=== PATIENT | female | born 1995 | race Caucasian/White ===

== ENCOUNTER 2025-08-26 13:08 | Emergency (ER) | payer SELFPAY ==
--- OUTSIDE RECORDS SUMMARY | 2025-08-26 13:13 | XMS REPORT | Continuity of Care Document ---
Author Name Unknown Address [address] [place] [address] [facility] [place] Address [address] [place] [address] Care Team Providers Care Staffing And Scheduling Coordinator Name Role Phone JENN TEIXEIRA Attending Clinician Unavailab Donta Dumont Attending Clinician Unavailable Ramy Root Attending Clinician Unavailable Nigel Pelayo Attending Clinician Unavailable Jae Garcia Attending Clinician Unavailable Carl Mcbride Attending Clinician Unavailable SKY SLADE Attending Clinician Chanel vailable Physician, No Primary or Family Admitting Clinic fiorella Unavailable JENN TEIXEIRA Admitting Clinician Unavailab mora Payers Payer Name Policy Type Policy Number Effective Date Expirati on Date Source [employer] [place] [employer] D [id number] 2018 00:00:00 Problems Condition Name Condition Details Condition Category Status Onset Date Resolution Date Last Treatment Date Treating Clinician Comments Source HIGH BP HIGH BP Active 07/10/2020 [facility] Diagnosis Active 2020-0 8-14 00:00: 00 2020-07-10 17:56:00 Darcy Sorto PIH PIH Active 07/08/2020 [facility] Diagnosis Active 8-12 00:00: 00 2020-07-09 07:15:00 Darcy Sorto ITCHY ITCHY Active 05/31/2020 [facility] Diagnosis Active 7-05 00:00: 00 2020-06-01 05:21:00 Darcy Sorto CHILDBIRTH CHILDBIRTH Active 10/27/2019 [facility] Diagnosis Active 2018-11 2- 00:00: 00 2020-07-14 17:37:00 Memrio Sorto ABD PAIN, N/V/D ABD PAIN, N/V/D Active 02/05/2015 [facility] Diagnosis Active -12 13:00: 00 2015-02-05 16:43:00 Memrio Sorto Gallbladde r calculus (disorder) Gallbladde r calculus (disorder) Resolved Problem 07/20/2020 [facility] Problem Resolve d 2020-07-20 07:42:51 Darcy Sorto Oligohydra mnios (disorder) Oligohydra mnios (disorder) Active Problem 07/20/2020 [facility] Problem Active 2020-07-20 07:42:51 Darcy Sorto ENCOUNTER FOR FULL-TERM UNCOMPLICA GUSTAVO DE ENCOUNTER FOR FULL-TERM UNCOMPLICA GUSTAVO DE Active [facility] Diagnosis Active 2020-07-14 17:37:00 Darcy Sorto LIVER AND BILIARY TRACT DISORD IN PREGNA LIVER AND BILIARY TRACT DISORD IN PREGNA Active [facility] Diagnosis Active 2020-06-01 05:21:00 Darcy Sorto 31 WEEKS GESTATION OF 31 WEEKS GESTATION OF Active [facility] Diagnosis Active 2020-06-01 05:21:00 Darcy Sorto MATERN CARE FOR ABNLT FETL HRT RATE OR R MATERN CARE FOR ABNLT FETL HRT RATE OR R Active [facility] Diagnosis Active 2020-06-01 05:21:00 Darcy Sorto Patient currently (finding) Patient currently (finding) Resolved 10/22/2019 Problem 07/20/2020 [facility] Problem Resolve d 2018-11 00:00: 00 2020-07-20 07:42:51 2020-07-20 07:42:51 Darcy Sorto History of Past Illness Condition Name Condition Details Condition Category Status Onset Date Resolution Date Last Treatment Date Treating Clinician Comments Source 37 weeks gestation of 37 weeks gestation of 07/10/2020 07/12/2020 [facility] Problem 2019-0 8-14 17:00: 00 2020-07-12 22:09:49 2020-07-12 22:09:49 Darcy Sorto Decreased movements, third trimester, not applicable or unspecifie d Decreased movements, third trimester, not applicable or unspecifie d 07/10/2020 07/12/2020 [facility] Problem 8-14 17:00: 00 2020-07-12 22:09:49 2020-07-12 22:09:49 Darcy Sorto Liver and biliary tract disorders in , third trimester Liver and biliary tract disorders in , third trimester 05/31/2020 06/02/2020 [facility] 7-05 17:00: 00 2020-06-02 21:11:00 2020-06-02 21:11:00 Darcy Sorto 31 weeks gestation of 31 weeks gestation of 05/31/2020 06/02/2020 [facility] Problem 7-05 17:00: 00 2020-06-02 21:11:00 2020-06-02 21:11:00 Darcy Sorto Discharge Diagnosis: Biliary colic Discharge Diagnosis: Biliary colic 02/05/2015 02/08/2015 [facility] Problem 2014-0 3-12 05:00: 00 2015-02-08 00:42:20 2015-02-08 00:42:20 Darcy Sorto Allergies, Adverse Reactions, Alerts Allergy Name Allergy Type Status Severity Reaction(s) Onset Date Inactive Date Treating Clinician Comments Source No Known Allergie s DA Active U 04-02 00:00: 00 [facility] [place] No Known Allergie s DA Active U 04-02 00:00: 00 [facility] [place] No Known Medicati on Allergie s No Known Medicati on Allergie s Active Darcy Sorto Social History Social Habit Start Date Stop Date Quantity Comments Source Sex Assigned At 1995 00:00:00 1995 00:00:00 Female [facility] Smoking Status Start Date Stop Date Source Unknown if ever smoked [facility] Social History [facility] Medications Ordered Medication Name Filled Medication Name Start Date Stop Date Current Medication? Ordering Clinician Indication Dosage Frequency Signature (SIG) Comments Components Source Docusate Sodium 100 MG Oral Capsule [Colace] 07-16 16:09: 00 Yes 100 mg = 1 cap, PO, BID, # 60 cap, 0 Refill(s), Pharmacy: [address], 165.1, cm, 07/13/20 11:32:00 CDT, Height, 90, kg, 07/13/20 11:32:00 CDT, Weight Memrio Sorto ferrous sulfate 325 mg oral enteric coated tablet 07-16 16:09: 00 Yes 325 mg = 1 tab, PO, Daily, # 30 tab, 0 Refill(s), Pharmacy: [address], 165.1, cm, 07/13/20 11:32:00 CDT, Height, 90, kg, 07/13/20 11:32:00 CDT, Weight Memrio Sorto Motrin 600 mg oral tablet 07-16 16:09: 00 Yes 600 mg = 1 tab, PO, Q6H, PRN Pain, take with food, # 30 tab, 0 Refill(s), Pharmacy: [address], 165.1, cm, 07/13/20 11:32:00 CDT, Height, 90, kg, 07/13/20 11:32:00 CDT, Weight Darcy Sorto Witch Nicolasa 500 MG/ML Medicated Pad 07-16 02:24: 00 No Notes: (Same as: Dominic Albraado PADS) Darcy Sorto Docusate Sodium 100 MG Oral Capsule [Colace] 07-15 22:00: 00 No Notes: (Same as: Colace) (Do Not Crush) Darcy Sorto ferrous sulfate 07-15 16:54: 00 No Notes: Give with food. iron elemental [id number] as ferrous sulfate Dose=___mg elemental iron Rudyrio emili Macario Multivitami ns oral tablet 07-15 14:00: 00 No 1 tab, Route: PO, Drug Form: TAB, Dosing Weight 90, kg, Daily, Start date: 07/15/20 9:00:00 CDT, Duration: 30 day, Stop date: 08/13/20 9:00:00 CDT, 0 Darcy Sorto Saline Flush 0.9% 07-15 14:00: 00 No Notes: Same as: BD Posiflush Sterile Rudyrio emili [place] Ibuprofen 07-15 05:00: 00 No Notes: (Same as: Motrin) "Do Not Crush" Take with food. Darcy Sorto M-M-R II 07-15 03:00: 00 No Notes: (Same as: M-M-R II) (measles-m umps-rubel la virus vaccine 0.5 ml INJ VL) WASTE: F/P - Red; E -Red GIVE PRIOR TO DISCHARGE Darcy Sorto Calcium Chloride 0.0014 MEQ/ML / Potassium Chloride 0.004 MEQ/ML / Sodium Chloride 0.103 MEQ/ML / Sodium Lactate 0.028 MEQ/ML Injectable Solution 07-15 03:00: 00 No 1,000 mL, 1,000 ml/hr, Infuse Over: 1 hr, Route: IV, 1,000, Drug form: INJ, ONCALL, Dosing Weight 90 kg, Start date: 07/14/20 22:00:00 CDT, Duration: 1 doses or times, For OB hemorrhage per physician direction, 0 Darcy Sorto Oxytocin 07-15 03:00: 00 No Notes: (Same as: Pitocin) Hazardous Drug Group 3:Reproduc tive risk Hazardous Drug -- Refer to safe handling procedure PPE Matrix Rudyrio mock Macario Misoprostol 07-15 03:00: 00 No Notes: (Same as:Cytotec ) Hazardous Drug Group 3:Reproduc tive risk Hazardous Drug -- Refer to safe handling procedure PPE Matrix Take with food Darcy Sorto Methylergon ovine 07-15 03:00: 00 No Notes: (Same as:Metherg ine) Hazardous Drug Group 3:Reproduc tive risk Hazardous Drug -- Refer to safe handling procedure PPE Matrix Darcy Sorto Atropine Sulfate 0.025 MG / Diphenoxyla te Hydrochlori de 2.5 MG Oral Tablet 07-15 03:00: 00 No Notes: (Same As: Lomotil) MAX Adult dose = 8 tabs/day Darcy Sorto Carboprost 07-15 03:00: 00 No Notes: (Same As: Hemabate) Darcy Sorto Tranexamic Acid 07-15 03:00: 00 No Notes: (Same As: Cyklokapro n) Darcy Sorto Lactated Ringers IV 1,000 mL 07-15 02:52: 00 No 1,000 mL, Rate: 100 ml/hr, Infuse over: 10 hr, Route: IV, Dosing Weight 90 kg, Total Volume: 1,000, see special instructio n for rate while completing infusion from recovery for the 20U of Oxytocin., Start date: 07/14/20 21:52:00 CDT, Duration: 30 day,... Darcy Sorto Ondansetron 07-15 02:52: 00 No Notes: (Same as: Zofran) MEDICATION WASTE Product Size: 4 mg Product Wasted: ___ mg Darcy Sorto Docusate 07-15 02:52: 00 No Notes: (Same as: Colace) (Do Not Crush) Darcy Sorto Bisacodyl 07-15 02:52: 00 No Notes: (Same As: Dulcolax, Correctol) (Do Not Crush) "Do Not Crush" Darcy Sorto lanolin topical 07-15 02:52: 00 No 1 appl, Route: TOP, PRN, Drug form: OINT, PRN Other -See Comment, Start date: 07/14/20 21:52:00 CDT, Duration: 30 day, Stop date: 08/13/20 21:51:00 CDT, 0 Darcy Sorto Dermoplast 20% topical spray 07-15 02:52: 00 No Notes: (Same As: Dermoplast ) WASTE: Aerosol - Return to Pharmacy FOR EXTERNAL USE ONLY Darcy Sorto Oxytocin 07-15 02:52: 00 No Notes: Hazardous Drug Group 3:Reproduc tive risk Hazardous Drug -- Refer to safe handling procedure PPE Matrix Darcy Sorto Saline Flush 0.9% 07-15 02:52: 00 No Notes: Same as: BD Posiflush Sterile Darcy Sorto Acetaminoph en 325 MG / Hydrocodone Bitartrate 10 MG Oral Tablet 07-15 02:52: 00 No Notes: Do not exceed 4gm/day of acetaminop hen. (Same as: Pelion 325/10) Darcy Sorto Gentamicin 07-15 02:00: 00 No 120 mg, Route: IV, Q12H, Dosing Weight 90, kg, Start date: 07/14/20 21:00:00 CDT, Duration: 30 day, Stop date: 08/13/20 9:00:00 CDT Darcy Sorto Ampicillin 07-15 01:00: 00 No Notes: (Same as: Trino) MEDICATION WASTE Product Size: 2000 mg Product Wasted: ___ mg Darcy Sorto Tylenol 07-15 00:28: 00 No 1,000 mg, Route: PO, ONCE, Dosing Weight 90, kg, Start date: 07/14/20 19:28:00 CDT, Stop date: 07/14/20 19:28:00 CDT Darcy Sorto Fentanyl / ropivacaine 07-14 05:19: 00 No Notes: (Same as Kaitlin hunter) Darcy Sorto Phenylephri ne 07-14 05:19: 00 No 0.1 mg, 1 mL, Route: IVP, Drug form: INJ, Q5Min, Dosing Weight 90, kg, PRN Low Blood Pressure, Start date: 07/14/20 0:19:00 CDT, Duration: 30 day, Stop date: 08/13/20 0:18:00 CDT, 0 Rudyrio Zhuann Remove - dinoproston e (Cervidil) insert 07-14 05:00: 00 No Notes: Vaginal insert: to be removed 1 hour prior to oxytocin administra tion or 12 hours after insertion. Hazardous Drug Group 3:Reproduc tive risk Hazardous Drug -- Refer to safe handling procedure PPE Matrix Darcy Sorto Cervidil 07-13 22:00: 00 No Notes: (Same as: Cervidil) Hazardous Drug Group 3:Reproduc tive risk Hazardous Drug -- Refer to safe handling procedure PPE Matrix Darcy Sorto Hydroxyzine 07-13 18:31: 00 No 0 Refill(s) Darcy Sorto Oxytocin 07-13 17:30: 00 No Notes: Hazardous Drug Group 3:Reproduc tive risk Hazardous Drug -- Refer to safe handling procedure PPE Matrix Darcy Sorto Cervidil 07-13 17:30: 00 No Notes: (Same as: Cervidil) Hazardous Drug Group 3:Reproduc tive risk Hazardous Drug -- Refer to safe handling procedure PPE Matrix Darcy Sorto Ibuprofen 07-13 17:00: 00 No Notes: (Same as: Motrin) "Do Not Crush" Take with food. Rudyrio emili Sorto Calcium Chloride 0.0014 MEQ/ML / Potassium Chloride 0.004 MEQ/ML / Sodium Chloride 0.103 MEQ/ML / Sodium Lactate 0.028 MEQ/ML Injectable Solution 07-13 17:00: 00 No 1,000 mL, 1,000 ml/hr, Infuse Over: 1 hr, Route: IV, 1,000, Drug form: INJ, ONCALL, Dosing Weight 90 kg, Start date: 07/13/20 12:00:00 CDT, Duration: 1 doses or times, For OB hemorrhage per physician direction, 0 Darcy Sorto Oxytocin 07-13 17:00: 00 No Notes: (Same as: Pitocin) Hazardous Drug Group 3:Reproduc tive risk Hazardous Drug -- Refer to safe handling procedure PPE Matrix Darcy Sorto Misoprostol 07-13 17:00: 00 No Notes: (Same as:Cytotec ) Hazardous Drug Group 3:Reproduc tive risk Hazardous Drug -- Refer to safe handling procedure PPE Matrix Take with food Darcy Sorto Methylergon ovine 07-13 17:00: 00 No Notes: (Same as:Metherg ine) Hazardous Drug Group 3:Reproduc tive risk Hazardous Drug -- Refer to safe handling procedure PPE Matrix Darcy Sorto Atropine Sulfate 0.025 MG / Diphenoxyla te Hydrochlori de 2.5 MG Oral Tablet 07-13 17:00: 00 No Notes: (Same As: Lomotil) MAX Adult dose = 8 tabs/day Darcy Sorto Carboprost 07-13 17:00: 00 No Notes: (Same As: Hemabate) Darcy Sorto Tranexamic Acid 07-13 17:00: 00 No Notes: (Same As: Cyklokapro n) Darcy Sorto Calcium Chloride 0.0014 MEQ/ML / Potassium Chloride 0.004 MEQ/ML / Sodium Chloride 0.103 MEQ/ML / Sodium Lactate 0.028 MEQ/ML Injectable Solution 07-13 16:56: 00 No 1,000 mL, Rate: 125 ml/hr, Infuse over: 8 hr, Route: IV, Dosing Weight 90 kg, Total Volume: 1,000, see special instructio ns when infusing 20U of Oxytocin., Start date: 07/13/20 11:56:00 CDT, Duration: 30 day, Stop date: 08/12/20 11:55:00 CDT, 2.06, m2, 0 Darcy Sorto Oxytocin 07-13 16:56: 00 No Notes: Hazardous Drug Group 3:Reproduc tive risk Hazardous Drug -- Refer to safe handling procedure PPE Matrix Darcy Sorto Butorphanol 07-13 16:56: 00 No Notes: (Same As: Stadol) Darcy Sorto Acetaminoph en 325 MG / Hydrocodone Bitartrate 10 MG Oral Tablet 07-13 16:56: 00 No Notes: Do not exceed 4gm/day of acetaminop hen. (Same as: Pelion 325/10) Darcy Sorto Ondansetron 07-13 16:56: 00 No Notes: (Same as: Cristian) MEDICATION WASTE Product Size: 4 mg Product Wasted: ___ mg Darcy Sorto Lidocaine Hydrochlori de 10 MG/ML Injectable Solution 07-13 16:56: 00 No Notes: Preservati ve free. (Same as: Xylocaine MPF) Darcy Sorto Terbutaline 2020-0 8-17 16:56: 00 No Notes: DO NOT USE IN S[place] AREA (Same As: Brethine) Darcy Sorto Dermoplast 20% topical spray 07-13 16:56: 00 No Notes: (Same As: Dermoplast ) WASTE: Aerosol - Return to Pharmacy FOR EXTERNAL USE ONLY Darcy Sorto Prena1 07-08 20:47: 00 Yes PO, Daily, 0 Refill(s) Darcy Sorto multivitami n, 05-31 14:00: 00 No 1 tab, Route: PO, Drug Form: TAB, Dosing Weight 52.727, kg, Daily, Start date: 05/31/20 9:00:00 CDT, Duration: 30 day, Stop date: 06/29/20 9:00:00 CDT, 0 Darcy Sorto Tums 05-31 08:54: 00 No Notes: (Same As: Tums) Calcium Carbonate 500 mg = 200 mg elemental calcium Dose = mg calcium carbonate ( mg elemental calcium) Darcy Sorto Calcium Chloride 0.0014 MEQ/ML / Potassium Chloride 0.004 MEQ/ML / Sodium Chloride 0.103 MEQ/ML / Sodium Lactate 0.028 MEQ/ML Injectable Solution 05-31 07:02: 00 No 1,000 mL, 1000 ml/hr, Infuse Over: 1 hr, Route: IV, 1,000, Drug form: INJ, ONCE, Priority: STAT, Dosing Weight 52.727 kg, Start date: 05/31/20 2:02:00 CDT, Stop date: 05/31/20 2:02:00 CDT, 0 Darcy emili Sorto Lactated Ringers IV 1,000 mL 05-31 07:01: 00 No 1,000 mL, Rate: 125 ml/hr, Infuse over: 8 hr, Route: IV, Dosing Weight 52.727 kg, Total Volume: 1,000, Start date: 05/31/20 2:01:00 CDT, Duration: 30 day, Stop date: 06/30/20 2:00:00 CDT, 1.55, m2, 0 Darcy Sorto Saline Flush 0.9% 05-31 07:01: 00 No Notes: Same as: BD Posiflush Sterile Darcy Sorto Ursodeoxych olate 05-31 06:51: 00 No Notes: (Same As: Actigall) Darcy Sorto ursodiol 300 mg oral capsule 05-31 06:13: 00 Yes 300 mg = 1 cap, PO, TID, # 180 cap, 0 Refill(s), Pharmacy: [facility] Pharmacy Lani Sorto Benadryl 05-31 06:10: 00 No Notes: (Same as: Benadryl) Darcy Zhuann Hydroxyzine Hydrochlori de 25 MG Oral Tablet 05-31 06:10: 00 Yes 25 mg = 1 tab, PO, TID, X 30 day, # 90 tab, 0 Refill(s), Pharmacy: [facility] Pharmacy Lani Sorto tetanus/dip hth/pertuss (Tdap) adult/adol 05-31 05:00: 00 No Notes: Therapeuti c Interchang e for Boostrix Rudyrio mock Macario Ondansetron 4 MG Disintegrat ing Tablet [Zofran] 02-05 22:24: 00 Yes Special Instructio ns: Dissolve tab under tongue Darcy emili Sorto Acetaminoph en 300 MG / Codeine Phosphate 30 MG Oral Tablet [Tylenol with Codeine #3] 02-05 22:24: 00 Yes 1 - 2 tab, PO, Q4H, Pain, # 20 tab, 0 Refill(s) Rudyrio emili Sorto Ondansetron 02-05 22:23: 00 No Notes: (Same as: Zofran) Darcy Sorto Morphine 02-05 22:23: 00 No Notes: (Same as:MORPhin e Sulfate) Rudyrio emili Sorto Sodium Chloride 0.154 MEQ/ML Injectable Solution 02-05 20:48: 00 No 1,000 mL, 1,000 ml/hr, Infuse Over: 1 hr, Route: IV, 1,000, Drug form: INJ, ONCE, Priority: STAT, Dosing Weight 52.727 kg, Start date: 02/05/15 15:48:00, Duration: 1 doses or times, Stop date: 02/05/15 15:48:00 [facility] Mac[facility] Morphine 02-05 20:48: 00 No Notes: (Same as:MORPhin e Sulfate) Memoria l Macario Ondansetron 02-05 20:48: 00 No Notes: (Same as: Zofran) Darcy l Macario Ketorolac 02-05 20:48: 00 No 4 days Memoria l Macario Vital Signs Vital Name Observation Time Observation Value Comments S ource Temperature Oral (F) 2020-07-16 13:25:00 97.9 F [facility] Heart Rate 2020-07-16 13:25:00 [facility] Respitory Rate 2020-07-16 13:25:00 [facility] Systolic (mm Hg) 2020-07-16 13:25:00 [facility] Diastolic (mm Hg) 2020-07-16 13:25:00 [facility] Temperature Oral (F) 2020-07-16 03:00:00 97.9 F [facility] Heart Rate 2020-07-16 03:00:00 [facility] Respitory Rate 2020-07-16 03:00:00 [facility] Systolic (mm Hg) 2020-07-16 03:00:00 [facility] Diastolic (mm Hg) 2020-07-16 03:00:00 [facility] Temperature Oral (F) 2020-07-15 20:31:00 97.4 F [facility] Heart Rate 2020-07-15 20:31:00 [facility] Respitory Rate 2020-07-15 20:31:00 [facility] Systolic (mm Hg) 2020-07-15 20:31:00 [facility] Diastolic (mm Hg) 2020-07-15 20:31:00 [facility] Height 2020-07-13 16:32:00 165.1 cm [facility] Weight 2020-07-13 16:32:00 [facility] BMI Calculated 2020-07-13 16:32:00 [facility] Height 2020-07-10 22:25:00 165.1 cm [facility] Weight 2020-07-10 22:25:00 [facility] BMI Calculated 2020-07-10 22:25:00 [facility] Systolic (mm Hg) 2020-07-10 22:11:00 [facility] Diastolic (mm Hg) 2020-07-10 22:11:00 [facility] Heart Rate 2020-07-10 22:11:00 [facility] Respitory Rate 2020-07-10 22:11:00 [facility] Temperature Oral (F) 2020-07-10 22:11:00 98 F [facility] Systolic (mm Hg) 2020-07-08 21:30:00 [facility] Diastolic (mm Hg) 2020-07-08 21:30:00 [facility] Systolic (mm Hg) 2020-07-08 21:15:00 [facility] Diastolic (mm Hg) 2020-07-08 21:15:00 [facility] Systolic (mm Hg) 2020-07-08 21:00:00 [facility] Diastolic (mm Hg) 2020-07-08 21:00:00 [facility] Height 2020-07-08 20:03:00 165.1 cm [facility] Weight 2020-07-08 20:03:00 [facility] BMI Calculated 2020-07-08 20:03:00 [facility] Temperature Oral (F) 2020-05-31 13:47:00 97.9 F [facility] Respitory Rate 2020-05-31 12:00:00 [facility] Systolic (mm Hg) 2020-05-31 12:00:00 [facility] Diastolic (mm Hg) 2020-05-31 12:00:00 [facility] Height 2020-05-31 08:54:00 157.48 cm [facility] Weight 2020-05-31 08:54:00 [facility] BMI Calculated 2020-05-31 08:54:00 [facility] Systolic (mm Hg) 2020-05-31 08:00:00 [facility] Diastolic (mm Hg) 2020-05-31 08:00:00 [facility] Temperature Oral (F) 2020-05-31 08:00:00 98.0 F [facility] Systolic (mm Hg) 2020-05-31 07:28:00 [facility] Diastolic (mm Hg) 2020-05-31 07:28:00 [facility] Heart Rate 2020-05-31 07:28:00 [facility] Respitory Rate 2020-05-31 07:28:00 [facility] Weight 2020-05-31 07:10:00 [facility] Heart Rate 2020-05-31 05:45:00 [facility] Respitory Rate 2020-05-31 05:45:00 [facility] Temperature Oral (F) 2020-05-31 05:45:00 98.4 F [facility] Heart Rate 2015-02-05 22:24:00 [facility] Respitory Rate 2015-02-05 22:24:00 [facility] Systolic (mm Hg) 2015-02-05 22:24:00 [facility] Diastolic (mm Hg) 2015-02-05 22:24:00 [facility] Temperature Oral (F) 2015-02-05 22:24:00 98.9 F [facility] Systolic (mm Hg) 2015-02-05 20:17:00 [facility] Diastolic (mm Hg) 2015-02-05 20:17:00 [facility] Heart Rate 2015-02-05 20:17:00 [facility] Respitory Rate 2015-02-05 20:17:00 [facility] Temperature Oral (F) 2015-02-05 20:17:00 99.2 F [facility] Weight 2015-02-05 20:17:00 [facility] BMI Calculated 2015-02-05 20:17:00 [facility] Height 2015-02-05 20:17:00 162.56 cm [facility] Procedures Procedure Date / Time Performed Performing Clinician Source Group A Streptococcus Screen (NO) 2024-04-09 00:00:00 [facility] Group A Streptococcus Culture 2024-04-09 00:00:00 [facility] XR Chest Pa & Lat STANDARD 2024-01-10 10:50:00 [facility] Respiratory Syncytial Virus Ag 2024-01-10 00:00:00 [facility] Influenza Types A,B Direct EIA 2023-11-14 00:00:00 [facility] Group A Streptococcus Screen (NO) 2023-11-14 00:00:00 [facility] Influenza Types A,B Direct EIA 2022-11-06 00:00:00 [facility] Group A Streptococcus Screen (NO) 2022-11-06 00:00:00 [facility] Cholecystectomy 2012-11-27 00:00:00 [facility] Tonsillectomy and adenoidectomy [facility] Encounters Start Date/Time End Date/Time Encounter Type Admission Type Attending [facility] Facility Care Department Encounter ID Source 2022-02-19 12:54:06 Outpatient [facility] [id number] [facility] 2021-04-17 14:22:56 Inpatient [facility] [id number] [facility] [place] 2020-07-13 11:29:00 Inpatient JENN TEIXEIRA [facility] [id number] TW 2024-04-09 12:15:00 2024-04-09 14:03:00 Emergency ER Donta Capellan [facility] [id number] [facility] 2024-01-10 09:56:00 2024-01-10 12:45:00 Emergency ER Dk Ramy [facility] [id number] [facility] 2023-11-14 16:46:00 2023-11-14 18:19:00 Emergency ER Nigel Pelayo [facility] [id number] [facility] 2022-11-06 10:15:00 2022-11-06 11:30:00 Emergency ER GarciaJae [facility] [id number] [facility] 2021-09-15 13:43:00 2021-09-15 15:37:00 Inpatient EM Carl Mcbride [facility] EO2 [id number] [facility] [place] 2020-07-13 16:29:00 2020-07-16 21:20:00 Inpatient nullFlavo r [facility] [id number] [facility] 2020-07-10 21:52:57 2020-07-10 23:11:00 Emergency nullFlavo r [facility] [id number] [facility] 2020-07-10 16:52:00 2020-07-10 18:11:00 Emergency [facility] [id number] [facility] 2020-07-08 19:53:00 2020-07-08 21:50:00 Observatio n nullFlavo r [facility] [id number] [facility] 2020-07-08 14:53:00 2020-07-08 16:50:00 [facility] [id number] [facility] 2020-05-31 05:36:56 2020-05-31 14:30:00 Observatio n nullFlavo r [facility] [id number] [facility] 2020-05-31 02:01:00 2020-05-31 09:30:00 Outpatient E [facility] [id number] [facility] 2015-02-05 20:16:00 2015-02-05 23:38:00 [facility] [id number] [facility] Results Test Description Test Time Test Comments Results Result Co mments Source Molecular Testing [id number] 13:35:00* Test Item Value Reference Range Interpretation Comme nts Molecular Testing MM (test code = [id number]) Not Detected NotDetected Performance of t he Cepheid SARS-CoV-2 has only beenestablished in nasopharyngeal swab specimens. This testcannot rule out diseases caused by other bacterial or viralpathogens.Cepheid has been provided an FDA EUA that will be effectiveuntil the declaration that circumstances exist justifyingthe authorization of the emergency use of in vitrodiagnostic tests for detection and/or diagnosis ofCOVID-19 is terminated under Section 564(b)(2) of the Act orthe EUA is revoked under Section 564(g) of the Act. Molecular Testing MM (test code = CEPHFLUA) Not Detected NotDetected Molecular Testing MM (test code = CEPHFLUB) Not Detected NotDetected Resident in [facility] Care Setting: UnknownEmployed in Healthcare: UnknownFirst Test: UnknownHospitalized: UnknownICU: UnknownDate of Symptom Onset: [id number]: UnknownReason for Testing: PUI -SymptomaticSource: Nasopharyngeal SwabSymptomatic as defined by CDC: UnknownStrep Group A Screen 2024-04-09 13:11:00* Test Item Value Reference Range Interpretation Comme nts Strep Group A Screen (test c ode = STRP) STRPANEG1 Strep Group A Screen (test c ode = STRP1) N Strep Group A Screen (test c ode = STRP1) STRPTH WCNYYZKOGU-PpP-5 (COVID-19) RNA [Presence] in Respiratory specimen by JUDITH with probe [id number] 12:52:00* Test Item Value Reference Range Interpretation Comme nts SARS-CoV-2 Rapid RNA (RT-PCR)(LAB) (test code = 48391-1) Not Detected NotDetected [facility] [Presence] in Upper respiratory specimen by JUDITH with probe [id number] 12:52:00* Test Item Value Reference Range Interpretation Comme nts Influenza Virus Type A RNA (INAAT) (test code = 67217-7) Not Detected NotDetected [facility] CenterInfluenza virus B RNA [Presence] in Nasopharynx by JUDITH with probe pvfoizfne2334-19-72 12:52:00* Test Item Value Reference Range Interpretation Comme nts Influenza Virus Type B RNA (INAAT) (test code = 15755-9) Not Detected NotDetected [facility] CenterMolecular [facility] [id number] 01:31:00* Test Item Value Reference Range Interpretation Comme nts Molecular Testing MM (test code = COVIDNAAT) Not Detected NotDetected Negative (Not Detected) results do not preclude infectionwith SARS-CoV-2 virus, and should not be the sole basis of apatient management decision. Consider testing for otherviruses if clinically indicated.The use of this assay as an In vitro diagnostic under theA Emergency Use Authorization (EUA) is limited tolaboratories that are certified under the ClinicalLaboratory Improvement Amendments of 1988 (CLIA), 42 U.S.C.263a, to perform high complexity tests. Molecular Testing MM (test code = COVIDSOURCEMM) Nasopharyngeal Swab Resident in [facility] Setting: NoEmployed in Healthcare: NoFirst Test: NoHospitalized: UnknownICU: UnknownDate of Symptom Onset: [id number]: UnknownReason for Testing: PUI -SymptomaticSource: Nasopharyngeal SwabSymptomatic as defined by CDC: YesRespiratory Syncytial Virus [id number] 12:33:00* Test Item Value Reference Range Interpretation Comme nts Respiratory Syncytial Virus Ag (test code = RSV) A negative result does not exclude RSV infection; therefore, Respiratory Syncytial Virus Ag (test code = RSV1) warranted. Respiratory Syncytial Virus Ag (test code = RSV1) RSV Respiratory Syncytial Virus Ag (test code = RSV1) N NAWASHInfluenza A+B Ag [id number] 12:32:00* Test Item Value Reference Range Interpretation Comme nts Influenza A+B Ag Screen (test code = FLU) The rapid Flu A+B test can distinguish between influenza A Influenza A+B Ag Screen (test code = FLU1) follow up confirmatory testing is warranted. Influenza A+B Ag Screen (test code = FLU1) FLUB Influenza A+B Ag Screen (test code = FLU1) N FZFPEGOatfxrccye7901-24-83 11:59:00* Test Item Value Reference Range Interpretation Comme nts Urinalysis (test code = UACLR) Yellow Yellow Urinalysis (test code = UACLY) Clear Clear Urinalysis (test code = SPGR) 1.025 1.005-1.030 N Urinalysis (test code = FRANCISCO) 7.0 5.0-9.0 N Urinalysis (test code = UALEU) Negative Negative Urinalysis (test code = UANIT) Negative Negative Urinalysis (test code = PROUADIP) Negative mg/dL Neg-Trace Urinalysis (test code = GLUCU) Negative mg/dL Negative Urinalysis (test code = KETU) Negative mg/dL Negative Urinalysis (test code = UAUROB) 0.2 mg/dL Less than 2 Urinalysis (test code = UABIL) Negative Negative Urinalysis (test code = UABLD) Negative Negative Urinalysis (test code = UARBC) None Seen HPF 0-3 Urinalysis (test code = UAWBC) None Seen HPF 0-3 Urinalysis (test code = UASQUAM) 7-10 HPF 0-3 Urinalysis (test code = UABAC) 1+ HPF None Seen A feverIndications to order a Urinalysis: Fever or rigorsUrine Source: Urine MtdcqkSmowkxuynj6651-33-36 11:59:00* Test Item Value Reference Range Interpretation Comme nts Urinalysis (test code = UACRFLXNO) No feverIndications to order a Urinalysis: Fever or rigorsUrine Source: Urine FfkqryMfnuwtneik0836-33-71 11:47:00* Test Item Value Reference Range Interpretation Comme nts Urinalysis (test code = BHCGUT) Negative Negative Method of sensit ivity- INDETERMINANT: results should be repeated after 48-72 hrs POSITIVE: results may be detected as early as 1 day after the first missed period A dilute urine specimen may not contain representativelevels of hCG.If is still suspected, a first morning urinespecimen OR a random blood specimen should be obtainedfrom the patient 48-72 hours later and re-tested. Urinalysis (test code = PREGUSG) 1.025 1.002-1.036 N Squamous epithelial cells detection in urine sediment by light microscopy 2024-01-10 11:12:00* Test Item Value Reference Range Interpretation Comme nts Urine Squamous Epithelial Ce lls (test code = 34265-4) 7-10 HPF 0-3 [facility] HospitalBacteria detection in urine sediment by light xlrxxlpzdn0106-66-22 11:12:00* Test Item Value Reference Range Interpretation Comme nts Urine Bacteria (test code = 90743-8) 1+ HPF None Seen [facility] CenterDo Not [id number] 11:12:00* Test Item Value Reference Range Interpretation Comme nts Urine Culture Reflexed (test code = LOINC) No [facility] CenterHCG ur [id number] 11:12:00* Test Item Value Reference Range Interpretation Comme nts Urine Test (test c ode = 2106-3) Negative Negative [facility] specific gravity measurement by yiyeqdjcqjxzd5987-77-52 11:12:00* Test Item Value Reference Range Interpretation Comme nts Urine Specific [place] (test code = 5810-7) 1.025 1.002-1.036 [facility] mlobq5918-44-01 11:12:00* Test Item Value Reference Range Interpretation Comme nts Urine Color (test code = 5778-6) Yellow Yellow [facility] agtfngt3996-55-75 11:12:00* Test Item Value Reference Range Interpretation Comme nts Urine Clarity (test code = 11600-0) Clear Clear [facility] pH measurement by automated test strip 2024-01-10 11:12:00* Test Item Value Reference Range Interpretation Comme nts Urine pH (test code = 37344-4) 7.0 5.0-9.0 [facility] leukocyte esterase detection by automated test [id number] 11:12:00* Test Item Value Reference Range Interpretation Comme nts Urine Leukocyte Esterase (te st code = 58339-2) Negative Negative [facility] CenterNitrite [Presence] in Urine by Test strip 2024-01-10 11:12:00* Test Item Value Reference Range Interpretation Comme nts Urine Nitrite (test code = 5802-4) Negative Negative [facility] protein measurement by automated test strip (mass/volume)2024-01-10 11:12:00* Test Item Value Reference Range Interpretation Comme nts Urine Protein (test code = 16000-1) Negative mg/dL Neg-Trace [facility] glucose measurement by test strip (mass/volume)2024-01-10 11:12:00* Test Item Value Reference Range Interpretation Comme [facility] Urine Glucose (UA) (test cod e = 5792-7) Negative mg/dL Negative [facility] ketones measurement by automated test strip (mass/volume)2024-01-10 11:12:00* Test Item Value Reference Range Interpretation Comme [facility] Urine Ketones (test code = 43268-9) Negative mg/dL Negative [facility] urobilinogen measurement (units/volume) by test [id number] 11:12:00* Test Item Value Reference Range Interpretation Comme [facility] Urine Urobilinogen (test cod e = 39017-2) 0.2 mg/dL Less than 2 [facility] total bilirubin detection by automated test [id number] 11:12:00* Test Item Value Reference Range Interpretation Comme [facility] Urine Bilirubin (test code = 63872-0) Negative Negative [facility] hemoglobin detection by automated test qjwjx4868-97-95 11:12:00* Test Item Value Reference Range Interpretation Comme [facility] Urine Blood (test code = 11787-0) Negative Negative [facility] sediment erythrocyte count by microscopy (number/high power field)2024-01-10 11:12:00* Test Item Value Reference Range Interpretation Comme [facility] Urine RBC (test code = 34418-7) None Seen HPF 0-3 [facility] HospitalLeukocytes detection in urine sediment by light jwhftcakaa6861-48-85 11:12:00* Test Item Value Reference Range Interpretation Comme [facility] Urine WBC (test code = 24381-1) None Seen HPF 0-3 [facility] CareCulture, Strep Group A [id number] 16:38:00* Test Item Value Reference Range Interpretation Comme nts Culture, Strep Group A Rflx (test code = STRPACULT) STRPCULT Culture, Strep Group A Rflx (test code = STRPACULT1) N Influenza A+B Ag Vycgke4224-93-71 17:51:00* Test Item Value Reference Range Interpretation Comme nts Influenza A+B Ag Screen (test code = FLU) The rapid Flu A+B test can distinguish between influenza A Influenza A+B Ag Screen (test code = FLU1) follow up confirmatory testing is warranted. Influenza A+B Ag Screen (test code = FLU1) FLUB Influenza A+B Ag Screen (test code = FLU1) N NASAL HStrep Group A Keqcou3743-37-35 17:33:00* Test Item Value Reference Range Interpretation Comme nts Strep Group A Screen (test c ode = STRP) STRPANEG1 Strep Group A Screen (test c ode = STRP1) N Strep Group A Screen (test c ode = STRP1) STRPTH THROAT HMolecular Testing [id number] 20:02:00* Test Item Value Reference Range Interpretation Comme nts Molecular Testing MM (test code = COVIDNAAT) Not Detected NotDetected Negative (Not Detected) results do not preclude infectionwith SARS-CoV-2 virus, and should not be the sole basis of apatient management decision. Consider testing for otherviruses if clinically indicated.The use of this assay as an In vitro diagnostic under theA Emergency Use Authorization (EUA) is limited tolaboratories that are certified under the ClinicalLaboratory Improvement Amendments of 1988 (CLIA), 42 U.S.C.263a, to perform high complexity tests. Molecular Testing MM (test code = COVIDSOURCEMM) Nasopharyngeal Swab Resident in [facility] Care Setting: UnknownEmployed in Healthcare: UnknownFirst Test: UnknownHospitalized: UnknownICU: Unknown: UnknownReason for Testing: PUI -SymptomaticSource: Nasopharyngeal SwabSymptomatic as defined by CDC: UnknownInfluenza A+B Ag Dkqqgb1718-26-99 11:25:00* Test Item Value Reference Range Interpretation Comme nts Influenza A+B Ag Screen (audi t code = FLU) FLUA Influenza A+B Ag Screen (audi t code = FLU1) N Influenza A+B Ag Screen (audi t code = FLU1) FLUB Strep Group A [id number] 11:13:00* Test Item Value Reference Range Interpretation Comme nts Strep Group A Screen (test c ode = STRP) STRPTH A Strep Group A Screen (test c ode = STRP1) P A - CT ABD PELVIS W/O [id number] 15:07:00 [facility] : 1995 Sex: FPatient Name: MARQUISE MUNIZ Unit No: [id number] EXAMS: CPT: [id number] CT ABD PELVIS W/O CONT 53851 CT ABDOMEN AND PELVIS WITHOUT CONTRAST: HISTORY: Right flank pain COMPARISON: None TECHNIQUE: Axial CT imaging of the abdomen and pelvis without IV contrast. Sensitivity of the exam is limited without contrast. Evaluation of the solid abdominal organs and bowel limited by lack of contrast. If there is anyconcern for clinical pathologic in these location and or if patient has persistent unexplained symptoms, contrast CT is recommended for further evaluation. No GI contrast administered Total DPL: 381.69mGy*cm One or more of the following dose reduction techniques were used: Automated exposure control, adjustment of the mA and or Kv according to patient size, and / or utilization of iterative reconstruction technique. FINDINGS: Dependent atelectasis. Below the hemidiaphragms: The unenhanced liver, pancreas, spleen and adrenals are unremarkable. Total postcholecystectomy. Unremarkable right kidney. A 3 mm nonobstructive calyceal calculus at the lower pole left kidney. No hydronephrosis or hydroureter. No bladder calculi. A normal caliber appendix. No bowel obstruction. The abdominal aorta is of normal caliber. No enlarged retroperitoneal lymph nodes. Bilateral ovarian cysts or follicles. No free fluid and no free air. No suspicious osseous lesion. IMPRESSION: Nonobstructive left kidney calculi. Bilateral ovarian cysts or follicles. Name: MARQUISE MUNIZolia FSED Phys: Carl Enciso MD XXXX 1488 : 1995 Age: 26 Sex: [place] [id number] Loc: MARTIN Exam Date: 09/15/2021 Status: REG ER PH: FAX: PAGE 1 Signed Report (CONTINUED) Patient Nam e: MARQUISE MUNIZ Unit No: [id number] EXAMS: CPT: [id number] CT ABD PELVIS W/O CONT 98255 (Continued) at 1507 Reported and signed by: Grayson Ramírez MD CC: Carl Mcbride MD Technologist: Gabbi Lemus CTDI: 16.07 DLP: 831.69 Trscr Dt/Tm: 09/15/2021 (1507) by:[email or web address] Orig Print D/T: S: 09/15/2021 (1510) BATCH NO: N/A Name: MARQUISE MUNIZ FSED Phys: Carl Enciso MD XXXX 1488 : 1995 Age: 26 Sex: [place] [id number] Loc: MARTIN Exam Date: 09/15/2021 Status: REG ER PH: FAX: PAGE 2 Signed ReportCBC W/AUTO [id number] 14:49:00* Test Item Value Reference Range Interpretation Comme nts WHITE BLOOD CELL (test code = WBC) 12.28 K/mm3 5.0-12.0 H RED BLOOD CELL (test code = RBC) 5.14 M/mm3 4.20-5.40 N HEMOGLOBIN (test code = HGB) 12.7 G/DL 12.0-16.0 N HEMATOCRIT (test code = HCT) 39.9 % 34.9-44.5 N MEAN CELL VOLUME (test code = MCV) 78 fL 81-99 L MEAN CELL HGB (test code = MCH) 24.7 PGM 27-31 L MEAN CELL HGB CONCENTRATION (test code = MCHC) 31.8 G/DL 33-37 L RED CELL DISTRIBUTION WIDTH (test code = RDW) 15.3 % 11.6-16.2 N PLATELET COUNT (test code = PLT) 319 K/mm3 130-400 N MEAN PLATELET VOLUME (test c ode = MPV) 9.6 fl 7.4-10.4 N NEUTROPHIL % (test code = NT%) 71.3 % 43-65 H IMMATURE GRANULOCYTE % (test code = IG%) 0.2 % 0.0-2.0 N LYMPHOCYTE % (test code = LY%) 20.4 % 20.5-45.5 L MONOCYTE % (test code = MO%) 7.7 % 5.5-11.7 N EOSINOPHIL % (test code = EO%) 0.2 % 0.9-2.9 L BASOPHIL % (test code = BA%) 0.2 % 0.2-1.0 N NEUTROPHIL # (test code = NT#) 8.76 K/mm3 2.2-4.8 H IMMATURE GRANULOCYTE # (test code = IG#) 0.03 x10 3/uL 0-0.03 N LYMPHOCYTE # (test code = LY#) 2.50 K/mm3 1.3-2.9 N MONOCYTE # (test code = MO#) 0.95 K/mm3 0.3-0.8 H EOSINOPHIL # (test code = EO#) 0.02 K/MM3 0.0-0.2 N BASOPHIL # (test code = BA#) 0.02 K/mm3 0.0-0.1 N COMPREHENSIVE METABOLIC [id number] 14:35:00* Test Item Value Reference Range Interpretation Comme nts SODIUM POC (test code = NAP) 140 mmol/L 138-146 N POTASSIUM POC (test code = KP) 3.3 mmol/L 3.5-4.9 L CHLORIDE POC (test code = CLP) 101 mmol/L 98-109 N CO2 POC (test code = CO2P) 27 mmol/L 24-29 N GLUCOSE POC (test code = GLUP) 114 MG/DL 70-105 H BUN POC (test code = BUNP) 13 mg/dL 8-26 N CREATININE POC (test code = CREATP) 1.2 mg/dL 0.6-1.3 N GLOMERULAR FILTRATION RATE P OC (test code = GFRP) 55 >60 L TOTAL PROTEIN (test code = PROT) 7.3 g/dL 6.4-8.1 N ALBUMIN (test code = ALB) 3.9 g/dL 3.3-5.5 N CALCIUM (test code = CA) 9.8 mg/dL 8.8-10.5 N BILIRUBIN TOTAL (test code = BILT) 0.6 mg/dL 0.2-1.6 N SGOT/AST (test code = AST) 20 IU/L 11-38 N SGPT/ALT (test code = ALT) 28 IU/L 10-47 N ALKALINE PHOSPHATASE (test c ode = ALKP) 79 IU/L 42-141 N HCG [id number] 14:12:00* Test Item Value Reference Range Interpretation Comme nts HCG POC (test code = HCGPOC) NEGATIVE IU/L Results of 5.0-25.0 IU/L are indeterminate and do not ruleout . Because HCG values double approximately every48 hours in a normal , patients with low levels ofHCG should be resampled and retested after 48 hours toconfirm . URINALYSIS DIPSTICK [id number] 14:10:00* Test Item Value Reference Range Interpretation Comme nts UA COLOR (test code = COLU) Dark yellow YELLOW UA APPEARANCE (test code = APPU) Clear CLEAR UA GLUCOSE DIPSTICK (test code = DGLUU) NEGATIVE MG/AL NEGATIVE UA BILIRUBIN DIPSTICK (test code = BILU) 1+ NEGATIVE A UA KETONE DIPSTICK (test code = KETU) NEGATIVE MG/DL NEGATIVE UA SPECIFIC GRAVITY (test code = SGU) >=1.030 1.000-1.030 UA BLOOD DIPSTICK (test code = FABIENNE) 3+ NEGATIVE A UA PH DIPSTICK (test code = FRANCISCO) 5.0 4.5-8.5 UA PROTEIN DIPSTICK (test code = PROU) 1+ NEGATIVE A UA UROBILINOGEN DIPSTICK (test code = URO) 0.2 EU/dL See_Comment [Automated [employer]] The system which generated this result transmitted reference range: <=1.0. The reference range was not used to interpret this result as normal/abnormal. UA NITRITE DIPSTICK (test code = ALEJANDRO) NEGATIVE NEGATIVE UA LEUKOCYTE ESTERASE DIPSTICK (test code = LEUU) TRACE NEGATIVE A UR HCG [id number] 13:54:00* Test Item Value Reference Range Interpretation Comme nts UR HCG QUAL (test code = HCGQLU) NEGATIVE NEGATIVE URINALYSIS DIPSTICK [id number] 13:51:00* Test Item Value Reference Range Interpretation Comme nts UA COLOR (test code = COLU) Yellow YELLOW UA APPEARANCE (test code = APPU) Clear CLEAR UA GLUCOSE DIPSTICK (test code = DGLUU) NEGATIVE MG/AL NEGATIVE UA BILIRUBIN DIPSTICK (test code = BILU) NEGATIVE NEGATIVE UA KETONE DIPSTICK (test code = KETU) NEGATIVE MG/DL NEGATIVE UA SPECIFIC GRAVITY (test code = SGU) >=1.030 1.000-1.030 UA BLOOD DIPSTICK (test code = FABIENNE) NEGATIVE NEGATIVE UA PH DIPSTICK (test code = FRANCISCO) 6.0 4.5-8.5 UA PROTEIN DIPSTICK (test code = PROU) NEGATIVE NEGATIVE UA UROBILINOGEN DIPSTICK (test code = URO) 0.2 EU/dL See_Comment [Automated [employer]] The system which generated this result transmitted reference range: <=1.0. The reference range was not used to interpret this result as normal/abnormal. UA NITRITE DIPSTICK (test code = ALEJANDRO) NEGATIVE NEGATIVE UA LEUKOCYTE ESTERASE DIPSTICK (test code = LEUU) NEGATIVE NEGATIVE [id number] 15:28:00* Test Item Value Reference Range Interpretation Comme nts Coronavirus (COVID-19) JUDITH (test code = Coronavirus (COVID-19) JUDITH) Not Detected (07/15/20 10:28 AM) [facility]JtwxuytWQSLDJZIUD2428-61-25 15:26:00* Test Item Value Reference Range Interpretation Comme nts Hgb (test code = Hgb) 8.8 12.0-16.0 [facility] [id number] 17:53:00* Test Item Value Reference Range Interpretation Comme nts Glucose Lvl (test code = Glucose Lvl) 70 70-99 [facility] [id number] 17:19:00* Test Item Value Reference Range Interpretation Comme nts ABO/Rh (test code = ABO/Rh) O POS [facility] CenterHduwtfxWKTPIBTUUC1505-16-60 17:19:00* Test Item Value Reference Range Interpretation Comme nts WBC (test code = WBC) 15.9 3.7-10.4 [facility] HospitalMcycqthWREUXRVVKR0960-07-05 17:19:00* Test Item Value Reference Range Interpretation Comme nts Hep Bs Ag (test code = Hep Bs Ag) Negative *NA*(07/13/20 12:19 PM) [facility] [id number] 20:32:00* Test Item Value Reference Range Interpretation Comme nts Glucose Lvl (test code = Glucose Lvl) 85 70-99 [facility] CenterMuwypaeKBHMBMJJQD2397-92-08 20:32:00* Test Item Value Reference Range Interpretation Comme nts WBC (test code = WBC) 14.7 3.7-10.4 [facility] AND [id number] 20:32:00* Test Item Value Reference Range Interpretation Comme nts UA Turbidity (test code = UA Turbidity) Clear (07/08/20 3:32 PM) [facility]ial [id number] 06:07:00* Test Item Value Reference Range Interpretation Comme nts Glucose Lvl (test code = Glucose Lvl) 87 70-99 [facility] CenterYjhmuazQCHBIPMRXS9264-89-42 06:07:00* Test Item Value Reference Range Interpretation Comme nts WBC (test code = WBC) 14.8 3.7-10.4 [facility] AND [id number] 06:07:00* Test Item Value Reference Range Interpretation Comme nts UA Turbidity (test code = UA Turbidity) Marked *ABN*(05/31/20 1:07 AM) [facility] STREP GROUP A (THROAT) [id number] 14:05:00* Test Item Value Reference Range Interpretation Comme nts AG STREP GROUP A (THROAT) POC (test code = STREPAPOC) POSITIVE FOR STREP A NEGATIVE A URINE [id number] 22:04:00* Test Item Value Reference Range Interpretation Comme nts U Preg (test code = U Preg) Negative (02/05/15 5:04 PM) [facility] AND [id number] 22:04:00* Test Item Value Reference Range Interpretation Comme nts UA Bili (test code = UA Bili) Negative *NA*(02/05/15 5:04 PM) [facility]CHE[facility] [id number] 21:08:00* Test Item Value Reference Range Interpretation Comme nts Lipase Lvl (test code = Lipase Lvl) 124 73-393 [facility] HospitalIjcljijCYWSCDXMIJ6937-01-68 21:08:00* Test Item Value Reference Range Interpretation Comme nts MCHC (test code = MCHC) 33.4 32.0-36.0 [facility] Chest Pa Lat STANDARD [facility] 1995 [facility] Name: MARQUISE MUNIZ [address] [place] [address] Phys: [place] [address] : 1995 Age: 28 SEX:F [phone] Exam Date: 01/10/24 Status: REG ER Acct: [id number] Loc: ANGELICA ERS Pt Unit #: [id number] Report #: [id number] CC: Ramy Root MD PULSECHECKSJX:[id number] IMAGING SERVICES REPORT Report Status: Signed Order # Category/Exam [id number] RAD/XR Chest Pa Lat STANDARD ([id number]): . Results EXAM: XR Chest Pa Lat STANDARD HISTORY:ANGELICA . COUGH Comparison:None FINDINGS: No convincing focal consolidation. No pneumothorax or pleural effusion. Normal cardiac dimensions and position. IMPRESSION: No evidence of acute cardiopulmo nary abnormality. Reported By: Ramy Nelson MD Electronically Signed Date/Time: 01/10/24 1156 Technologist: EBONY Dictated Date/Time: 01/10/24 1154 Transcribed Date/Time: Notes Date/Time Note Provider Source 2021-09-15 15:20:00 [facility] [employer] ([facility]) EMERGENCY PROVIDER REPORT REPORT#:[id number] REPORT STATUS: Signed DATE:09/15/21 TIME: 152 PATIENT: MARQUISE MUNIZ UNIT #: [id number] ROOM: BED: AGE: 26 SEX: F PCP PHYS: No Primary or Family Physician SERVICE AUTHOR: Carl Mcbride MD * ALL edits or amendments must be made on the electronic/computer document * HPI-Abd Pain F Under 40 General Initial Greet Date/Time 09/15/21 1344 Presentation Chief Complaint Flank pain R Hx Obtained From Patient Sudden in Onset? Yes Onset Occurred Today Free Text HPI Notes Free Text HPI Notes 26-year-old complains of acute constant right flank pain associated with nausea. No fever. No dysuria or hematuria. No diarrhea or constipation. No vaginal bleeding or discharge. Risk-Abd Pain F Under 40 )( Ectopic Risk factors reviewed Review of Systems ROS Statements All systems rev neg except as marked. Past Medical History - Adult Stated Complaint ABDOMINAL PAIN Allergies Coded Allergies: No Known Allergies (04/02/19) Home Medications Discontinued Scripts Naproxen (Naprosyn) 250 MG PO BID PRN PRN PAIN Naproxen (Naprosyn) 250 MG PO BID PRN PRN PAIN #60 TABS Prov: 04/17/21 DC: 09/15/21 1353 Changed since prior admit Methocarbamol (Robaxin) 1,000 MG PO QID PRN PRN MUSCLE SPASMS/PAIN Methocarbamol (Robaxin) 1,000 MG PO QID PRN PRN MUSCLE SPASMS/PAIN #30 TABS Prov: 04/17/21 DC: 09/15/21 1353 Changed since prior admit Pt reports no significant: Family history, Social history Smoking status: Smoking status for patients 13 years old or older: Unknown,if ever smoked Physical Exam Vital Signs Vital Signs First Documented: Result Date Time Pulse Ox 100 09/15 1346 B/P 116/78 09/15 1346 B/P Mean 90.9 09/15 1346 Temp 36.4 09/15 1346 Pulse 58 09/15 1346 Resp 15 09/15 1346 O2 Delivery Room air 09/15 1349 Last Documented: Result Date Time O2 Delivery Room air 09/15 1349 Pulse Ox 100 09/15 1346 B/P 116/78 09/15 1346 B/P Mean 90.9 09/15 1346 Temp 36.4 09/15 1346 Pulse 58 09/15 134 Resp 15 09/15 1346 Review of Vital Signs Reviewed Focused PE General/Const General/Const Awake, Alert, Well appearing Ears/Nose/Throat Ears/Nose/Throat Airway patent, Mucous membranes moist, Pharynx NL Resp/Chest Respiratory/Chest Breath sounds NL, Breath sounds = bilat, No respiratory distress, No rales, No rhonchi, No wheezing Cardiovascular Cardiovascular Heart rate NL, Regular rhythm, Heart sounds NL, Peripheral circulation NL Abdomen/GI Abdomen/GI Soft, Non-tender, McBurney's non-tender, No guarding, No rebound, BS normoactive, No distention, No hernia, No palpable mass MS Back Back Inspection NL, Non-tender, No CVA tenderness Skin Skin Color NL, Warm, Dry, Turgor NL Neurologic Neurologic Oriented X3, Speech NL, No motor deficits, No sensory deficits Interpretation Diagnostics Lab Results Interpretation Results Laboratory Tests 09/15/21 1359: [Embedded Image Not Available] Laboratory Tests: 09/15 09/15 09/15 09/15 1220 1359 1415 1417 Chemistry POC Sodium (138 - 146 mmol/L) 140 POC Potassium (3.5 - 4.9 mmol/L) 3.3 L POC Chloride (98 - 109 mmol/L) 101 POC Total CO2 (24 - 29 mmol/L) 27 POC BUN (8 - 26 mg/dL) 13 POC Creatinine (0.6 - 1.3 mg/dL) 1.2 Estimated GFR (MDRD) (>60) 55 L POC Glucose (70 - 105 MG/DL) 114 H Calcium (8.8 - 10.5 mg/dL) 9.8 Total Bilirubin (0.2 - 1.6 mg/dL) 0.6 AST (11 - 38 IU/L) 20 ALT (10 - 47 IU/L) 28 Total Alk Phosphatase (42 - 141 IU/L) 79 Total Protein (6.4 - 8.1 g/dL) 7.3 Albumin (3.3 - 5.5 g/dL) 3.9 Hematology WBC (5.0 - 12.0 K/mm3) 12.28 H RBC (4.20 - 5.40 M/mm3) 5.14 Hgb (12.0 - 16.0 G/DL) 12.7 Hct (34.9 - 44.5 %) 39.9 MCV (81 - 99 fL) 78 L MCH (27 - 31 PGM) 24.7 L MCHC (33 - 37 G/DL) 31.8 L RDW (11.6 - 16.2 %) 15.3 Plt Count (130 - 400 K/mm3) 319 MPV (7.4 - 10.4 fl) 9.6 Neut % (Auto) (43 - 65 %) 71.3 H Lymph % (Auto) (20.5 - 45.5 %) 20.4 L Ellis % (Auto) (5.5 - 11.7 %) 7.7 Eos % (Auto) (0.9 - 2.9 %) 0.2 L Baso % (Auto) (0.2 - 1.0 %) 0.2 Neut # (Auto) (2.2 - 4.8 K/mm3) 8.76 H Lymph # (Auto) (1.3 - 2.9 K/mm3) 2.50 Ellis # (Auto) (0.3 - 0.8 K/mm3) 0.95 H Eos # (Auto) (0.0 - 0.2 K/MM3) 0.02 Baso # (Auto) (0.0 - 0.1 K/mm3) 0.02 Immature Gran % (0.0 - 2.0 %) 0.2 Urines Urine Color (YELLOW) Dark yellow Urine Appearance (CLEAR) Clear Urine pH (4.5 - 8.5) 5.0 Ur Specific [place] (1.000 - 1.030) >=1.030 Urine Protein (NEGATIVE) 1+ H Urine Glucose (UA) (NEGATIVE MG/AL) NEGATIVE Urine Ketones (NEGATIVE MG/DL) NEGATIVE Urine Blood (NEGATIVE) 3+ H Urine Nitrite (NEGATIVE) NEGATIVE Urine Bilirubin (NEGATIVE) 1+ A Urine Urobilinogen (<=1.0 EU/dL) 0.2 Ur Leukocyte Esterase (NEGATIVE) TRACE H POC Urine HCG (IU/L) NEGATIVE Recent Impressions: CAT SCAN - CT ABD PELVIS W/O CONT 09/15 1448 Report Impression - Status: SIGNED Entered: 09/15/2021 1510 IMPRESSION: Nonobstructive left kidney calculi. Bilateral ovarian cysts or follicles. Impression By: [email or web address] - Grayson Ramírez MD Lab Imaging Statement Laboratory radiographic studies reviewed and considered in the medical decision-making. Re-Evaluation MDM )( Re-Evaluation/Progress #1 )( Re-Eval Status Improved ED Course Medication(s) Ordered Medication(s) Ordered: Central Nervous System Agents Sig/Lam Start time Last Medication Dose Route Stop Time Status Admin Ketorolac 15 MG X1ED STA 09/15 1408 DC 10 Tromethamine IV 09/15 1409 1412 Ketorolac 15 MG X1ED STA 09/15 1358 DC Tromethamine IV 09/15 1359 Electrolytic, Caloric, And Lisa Sig/Lam Start time Last Medication Dose Route Stop Time Status Admin Sodium Chloride 1,000 ML X1ED STA 09/15 1358 DC 10/20 IV 09/15 1457 1413 Gastrointestinal Drugs Sig/Lam Start time Last Medication Dose Route Stop Time Status Admin Ondansetron HCl 4 MG X1ED PRN PRN 09/15 1400 DC 09/15 IV 1412 Patient Discharge Departure Vital Signs/Condition Vital Signs First Documented: Result Date Time Pulse Ox 100 09/15 1346 B/P 116/78 09/15 1346 B/P Mean 90.9 09/15 1346 Temp 36.4 09/15 1346 Pulse 58 09/15 1346 Resp 15 09/15 1346 O2 Delivery Room air 09/15 1349 Last Documented: Result Date Time O2 Delivery Room air 09/15 1349 Pulse Ox 100 09/15 1346 B/P 116/78 09/15 1346 B/P Mean 90.9 09/15 1346 Temp 36.4 09/15 1346 Pulse 58 09/15 1346 Resp 15 09/15 1346 All vital signs available at the time of this entry have been reviewed. Clinical Impression Clinical Impression Primary Impression: Flank pain Disposition Decision Discharge )( Discharged to Home Yes )( Time 1520 )( Date 09/15/21 Discharge/Care Plan Patient Instructions ED Flank Pain, Uncertain Cause Additional Instructions Follow-up with your established primary care provider in 2 days Discharge Note I have spoken with the patient and/or caregivers. I have explained the patient's condition, diagnoses and treatment plan based on the information available to me at this time. I have answered the patient's and/or caregiver's questions and addressed any concerns. The patient and/or caregivers have as good an understanding of the patient's diagnosis, condition and treatment plan as can be expected at this point. The vital signs have been stable. The patient's condition is stable and appropriate for discharge from the emergency department. The patient will pursue further outpatient evaluation with the primary care physician or other designated or consulting physician as outlined in the discharge instructions. The patient and/or caregivers are agreeable to this plan of care and follow-up instructions have been explained in detail. The patient and/or caregivers have received these instructions in written format and have expressed an understanding of the discharge instructions. The patient and/or caregivers are aware that any significant change in condition or worsening of symptoms should prompt an immediate return to this or the closest emergency department or a call to 911. at 1706 RPT #:[id number] END OF REPORT [facility] 2021-04-17 14:16:00 [facility] ([facility]) EMERGENCY PROVIDER REPORT REPORT#:[id number] REPORT STATUS: Signed DATE:04/17/21 TIME: 1416 PATIENT: MARQUISE MUNIZ UNIT #: [id number] ROOM: BED: AGE: 25 SEX: F PCP PHYS: No Primary or Family Physician SERVICE AUTHOR: Gregorio Booker MD * ALL edits or amendments must be made on the electronic/computer document * HPI-Back Pain Under 40 General Initial Greet Date/Time 04/17/21 1335 Presentation Chief Complaint Pain, lumbar )( Sudden in Onset? No Free Text HPI Notes Free Text HPI Notes 25-year-old female with no significant past medical history who presents for low back pain. States that she woke up yesterday morning with low midline back pain that is worse with movement. Got worse this morning so she presented to the emergency department. Associated with numbness in bilateral thighs, particularly when she leans forward. Denies any associated bowel or bladder issues. Denies trauma, injury, leg weakness. Denies any dysuria, hematuria, fevers. Of note she states that for the last several days she has been having some viral URI versus allergy symptoms with nasal congestion, sneezing. Of note patient has a 9-month -old at home, and an epidural 9 months ago, and has been more physically active recently because she is getting in 1 month. Review of Systems ROS Statements All systems rev neg except as marked. Focused Review of Systems Constitutional Denies: Chills, Fever. Musculoskeletal Reports: Back pain. Denies: Extremity pain. Past Medical History - Adult Stated Complaint BACK PAIN NO INJURY Allergies Coded Allergies: No Known Allergies (04/02/19) Pt reports no significant: Past medical history, Past surgical history, Family history, Social history Smoking status: Smoking status for patients 13 years old or older: Never Smoker Physical Exam Vital Signs Vital Signs First Documented: Result Date Time Pulse Ox 98 04/17 1339 B/P 118/84 04/17 1339 B/P Mean 95.2 04/17 1339 Temp 98.1 04/17 1339 Pulse 85 04/17 1339 Resp 16 04/17 1339 Last Documented: Result Date Time Pulse Ox 98 04/17 1339 B/P 118/84 04/17 1339 B/P Mean 95.2 04/17 1339 Temp 98.1 04/17 1339 Pulse 85 04/17 1339 Resp 16 04/17 1339 Review of Vital Signs Reviewed Focused PE General/Const General/Const Awake, Alert, Well appearing Abdomen/GI Abdomen/GI Soft, Non-tender, No guarding, No rebound MS Back Text/Dict Notes Lower midline tenderness to palpation. No overlying skin changes. Pain worse with flexion and rotation to either side, better with extension. No significant paraspinal muscle tenderness to palpation. Bilateral positive straight leg test. MS Lower Extrem Lower Ext/Pelvis/MS Inspection NL, No swelling, Non-tender, No erythema, No deformity, Neurologic intact, Vascular intact, No edema Neurologic Neurologic Oriented X3, Speech NL, No motor deficits, No sensory deficits, Reflexes equal bilat Interpretation Diagnostics Lab Results Interpretation Results Laboratory Tests: 04/17 04/17 1353 1353 Urines Urine Color (YELLOW) Yellow Urine Appearance (CLEAR) Clear Urine pH (4.5 - 8.5) 6.0 Ur Specific [place] (1.000 - 1.030) >=1.030 Urine Protein (NEGATIVE) NEGATIVE Urine Glucose (UA) (NEGATIVE MG/AL) NEGATIVE Urine Ketones (NEGATIVE MG/DL) NEGATIVE Urine Blood (NEGATIVE) NEGATIVE Urine Nitrite (NEGATIVE) NEGATIVE Urine Bilirubin (NEGATIVE) NEGATIVE Urine Urobilinogen (<=1.0 EU/dL) 0.2 Ur Leukocyte Esterase (NEGATIVE) NEGATIVE Urine HCG, Qual (NEGATIVE) NEGATIVE Point of Care Testing Pulse Oximetry Pulse Ox % 98 On: Room air Interpretation Interpreted by me, Pulse oximetry normal Time 1339 Patient Discharge Departure Vital Signs/Condition Vital Signs First Documented: Result Date Time Pulse Ox 98 04/17 1339 B/P 118/84 04/17 1339 B/P Mean 95.2 04/17 1339 Temp 98.1 04/17 1339 Pulse 85 04/17 1339 Resp 16 04/17 1339 Last Documented: Result Date Time Pulse Ox 98 04/17 1339 B/P 118/84 04/17 1339 B/P Mean 95.2 04/17 1339 Temp 98.1 04/17 1339 Pulse 85 04/17 1339 Resp 16 04/17 1339 All vital signs available at the time of this entry have been reviewed. Clinical Impression Clinical Impression Primary Impression: Low back pain Secondary Impressions: Lumbar radiculopathy Disposition Decision Discharge )( Discharged to Home Yes )( Time 1422 )( Date 04/17/21 Discharge/Care Plan Counseled Regarding Diagnosis, Prescriptions, Need for follow-up, When to return to ED (Auto) Prescriptions Current Visit Scripts Naproxen (Naprosyn) 250 MG PO BID PRN PRN PAIN Naproxen (Naprosyn) 250 MG PO BID PRN PRN PAIN #60 TABS Methocarbamol (Robaxin) 1,000 MG PO QID PRN PRN MUSCLE SPASMS/PAIN Methocarbamol (Robaxin) 1,000 MG PO QID PRN PRN MUSCLE SPASMS/PAIN #30 TABS Patient Instructions ED Back Exercises, Lumbar, ED Sciatica Referrals PRIMARY CARE: 2-3 Days Discharge Note I have spoken with the patient and/or caregivers. I have explained the patient's condition, diagnoses and treatment plan based on the information available to me at this time. I have answered the patient's and/or caregiver's questions and addressed any concerns. The patient and/or caregivers have as good an understanding of the patient's diagnosis, condition and treatment plan as can be expected at this point. The vital signs have been stable. The patient's condition is stable and appropriate for discharge from the emergency department. The patient will pursue further outpatient evaluation with the primary care physician or other designated or consulting physician as outlined in the discharge instructions. The patient and/or caregivers are agreeable to this plan of care and follow-up instructions have been explained in detail. The patient and/or caregivers have received these instructions in written format and have expressed an understanding of the discharge instructions. The patient and/or caregivers are aware that any significant change in condition or worsening of symptoms should prompt an immediate return to this or the closest emergency department or a call to 911. at 1445 RPT #:[id number] END OF REPORT [facility] 2020-07-10 18:07:32 PROCEDURE INFORMATIO N: Exam: US Biophysical Profile Without Non-Stress Test Exam date and time: 07/10/2020 5:50 PM Age: 25 years old Clinical indication: Screening exam; Additional info: /37 wks, decreased movement TECHNIQUE: Imaging protocol: US biophysical profile without non-stress testing. COMPARISON: BIOPHYSICAL PROFILE SING GEST US 05/31/2020 3:45 AM FINDINGS: Limitations: Limited scanning of the gravid uterus was performed. Gestation: Single fetus is identified. Heart rate: One hundred forty beats per minute. Placenta: Placenta location: Posterior fundus. No evidence for placenta previa. Amniotic fluid: Amniotic fluid index: 6.8 cm. BIOPHYSICAL PROFILE: Breathin/2 Gross body movements: 2/2 tone: 2/2 Qualitative amniotic fluid: 2/2 Biophysical Profile Score: 8/8 BIOMETRY: Estimated gestational age: 37 weeks 3 days gestational age by last menstrual period. MATERNAL ANATOMY: Cervix: Measures up to 3.5 cm in length. Other findings: presentation: Cephalic. IMPRESSION: Biophysical profile score is 8 out of 8. Juan A Patel MD On 07/10/2020 19:23:32; [id number] [facility] 2020-05-31 02:45:00 PROCEDURE INFORMATIO N: Exam: US Biophysical Profile Without Non-Stress Test Exam date and time: 05/31/2020 2:16 AM Age: 25 years old Clinical indication: status abnormalities: ; Abnormal heart rate; Single gestation; Third trimester (28 wks 0 days until delivery); ; Additional info: / decelerations, cholestasis of TECHNIQUE: Imaging protocol: US biophysical profile without non-stress testing. COMPARISON: No relevant prior studies available. FINDINGS: Heart rate: heart rate 142 bpm. Presentation: Fetus in the cephalic position. Placenta: Posterior placenta. Amniotic fluid index: Amniotic fluid index 10.1 cm with largest pocket measuring 4.0 cm. BIOPHYSICAL PROFILE: Breathin/2 Gross body movements: 2/2 tone: 2/2 Qualitative amniotic fluid: 2/2 Biophysical Profile Score: 8/8 MATERNAL ANATOMY: Cervix: The cervix is closed with a length of 3.8 cm. IMPRESSION: Biophysical profile score is 8 out of 8. Sravan Ayon MD On 05/31/2020 04:29:59; [id number] [facility] 2019-09-27 13:45:00 [facility] ([facility]) EMERGENCY PROVIDER REPORT REPORT#:[id number] REPORT STATUS: Signed DATE:09/27/19 TIME: 134 PATIENT: MARQUISE MUNIZ UNIT #: [id number] ROOM: BED: AGE: 24 SEX: F PCP PHYS: No Primary or Family Physician SERVICE AUTHOR: Mckinley Pickering MD * ALL edits or amendments must be made on the electronic/computer document * HPI-Eye Problem General Confirmed Patient Yes Patient Type New patient Initial Greet Date/Time 09/27/19 1338 Presentation Chief Complaint Both eyes affected, Discharge, Redness Free Text HPI Notes Free Text HPI Notes 24 y/o F comes to the ED due to Bilateral eye discharge, redness and pain that started yesterday in the Left eye and this morning both eyes affected, pt states that she had to wash eyes to remove dry discharge. Pt also states that has been having sore throat and subjective fevers for the past 3 days, no nausea, no vomiting, no blurry vision, no visual changes. Risk-Eye Problem Risk Stratification )( Eye Injury - Adult Risk factors reviewed, No risk factors Review of Systems ROS Statements All systems rev neg except as marked. Focused Review of Systems Constitutional Reports: Fever. Denies: Chills, Fatigue, Lethargy, Malaise, Recent wt loss, Weakness - generalized. Eyes Reports: Discharge bilat, Eye pain bilat, Redness bilat, Swelling bilat. Denies : Blurred R, Blurred L, Blurred bilat, Diplopia, Discharge R, Discharge L, Eye pain R, Eye pain L, Photophobia, Redness R, Redness L, Swelling R, Swelling L, Visual loss R, Visual loss L, Visual loss bilat, Yellow R, Yellow L, Yellow bilat. Ears/Nose/Throat Reports: Sore throat. Denies: Ear drainage R, Ear drainage L, Ear drainage bilat, Ear ringing R, Ear ringing L, Ear ringing bilat, Earache R, Earache L, Earache bilat, Hearing loss R, Hearing loss L, Hearing loss bilat, Mouth pain, Nasal congestion, Nose bleeding, Sinus problem, Throat pain, Throat swelling, Tongue pain, Tongue swelling, Toothache, Voice change. GI Denies: Abdominal pain, Anorexia, Belching, Bloody/tarry stool, Constipation, Diarrhea, Dysphagia, Hematemesis, Hematochezia, Mucousy stool, Melena, Nausea, Rectal pain, Vomiting. Neurologic Denies: Abnormal movement, Bladder dysfunction, Bowel dysfunction, Change LOC, Confusion, Dizziness, Focal weakness, Generalized weakness, Headache, Lightheaded, Numbness, Problem walking, Seizure, Shaking, Slurred speech, Spinning sensation, Syncope, Tingling, Unable to speak, Vision change. Past Medical History - Adult Stated Complaint EYE PROBLEM Allergies Coded Allergies: No Known Allergies (04/02/19) Home Medications Reported Medications No Known Home Medications Smoking status for patients 13 years old or older: Unknown,if ever smoked Physical Exam Vital Signs Vital Signs First Documented: Result Date Time Pulse Ox 97 09/27 1337 B/P 123/89 11/01 1337 B/P Mean 100.3 09/27 1337 Temp 36.7 09/27 1337 Pulse 91 09/27 1337 Resp 18 09/27 1337 Last Documented: Result Date Time Pulse Ox 97 09/27 1337 B/P 123/89 09/27 1337 B/P Mean 100.3 09/27 1337 Temp 36.7 09/27 1337 Pulse 91 09/27 1337 Resp 18 09/27 1337 Review of Vital Signs Reviewed, Vital signs normal Focused PE General/Const General/Const Awake, Alert, No acute distress, Well appearing, Well developed , Well hydrated, Well nourished, Cooperative, Not toxic appearing MS Head Head Atraumatic, Normocephalic Eyes Eyes Atraumatic, PERRL, EOMI Conjunctiva/Sclera Injected R, Injected L. Negative: Discharge R, Discharge L, Subconj hemorrhage R, Subconj hemorrhage L, Icteric, Pallor, Chemosis R, Chemosis L, Pterygium R, Pterygium L, Limbus injected R, Limbus injected L. Ears/Nose/Throat Ears/Nose/Throat Atraumatic, Airway patent, Mucous membranes moist, No peritonsillar abscess, No pooling of secretions, No trismus, Tympanic membs NL, Ext aud canal NL, Mastoid area NL, Nose exam NL, No sinus tenderness, No facial swelling, Gums/dentition NL Pharynx/Tonsils/Uvula Pharyngeal erythema. Neurologic Neurologic Oriented X3, Speech NL, No motor deficits, No sensory deficits, CN II - XII intact, Reflexes equal bilat, Cerebellar NL, Memory NL, Gait NL Interpretation Diagnostics Lab Results Interpretation Results Laboratory Tests: 09/27 1405 Serology Group A Strep Screen (NEGATIVE) POSITIVE FOR STREP A H Re-Evaluation MDM Free Text MDM Notes Free Text MDM Notes PT is positive for strep pharyngitis, will DH with cefdinir and topical erythromycin for conjucntivitis, pt instructed that has to wait until the conjunctivitis clears to return to work and to complete course of abx. She states to understand all instructions and all questions answered, will DH. Patient Discharge Departure Vital Signs/Condition Vital Signs First Documented: Result Date Time Pulse Ox 97 09/27 1337 B/P 123/89 09/27 1337 B/P Mean 100.3 09/27 1337 Temp 36.7 09/27 1337 Pulse 91 09/27 1337 Resp 18 09/27 1337 Last Documented: Result Date Time Pulse Ox 97 09/27 1337 B/P 123/89 09/27 1337 B/P Mean 100.3 09/27 1337 Temp 36.7 09/27 1337 Pulse 91 09/27 1337 Resp 18 09/27 1337 All vital signs available at the time of this entry have been reviewed. Condition Stable Clinical Impression Clinical Impression Primary Impression: Conjunctivitis Secondary Impressions: Strep pharyngitis Disposition Decision Discharge )( Discharged to Home Yes )( Time 1405 )( Date 09/27/19 Discharge/Care Plan Counseled Regarding Diagnosis, Lab results, Prescriptions, Need for follow-up, When to return to ED Discharge Note I have spoken with the patient and/or caregivers. I have explained the patient's condition, diagnoses and treatment plan based on the information available to me at this time. I have answered the patient's and/or caregiver's questions and addressed any concerns. The patient and/or caregivers have as good an understanding of the patient's diagnosis, condition and treatment plan as can be expected at this point. The vital signs have been stable. The patient's condition is stable and appropriate for discharge from the emergency department. The patient will pursue further outpatient evaluation with the primary care physician or other designated or consulting physician as outlined in the discharge instructions. The patient and/or caregivers are agreeable to this plan of care and follow-up instructions have been explained in detail. The patient and/or caregivers have received these instructions in written format and have expressed an understanding of the discharge instructions. The patient and/or caregivers are aware that any significant change in condition or worsening of symptoms should prompt an immediate return to this or the closest emergency department or a call to 911. Quality Measures Pharyngitis Testing Antibiotic prescribed, Group A Strep test doc at 0636 [facility] #:[id number] END OF REPORT [facility]
--- NOTE | 2025-08-26 13:26 | ER ---
Nurse's Notes [facility] Name: Puala Pulido Age: 30 yrs Sex: Female : 1995 Arrival Date: 08/26/2025 Time: 13:08 Bed 11 Private MD: Diagnosis: Streptococcal pharyngitis Presentation: 08/26 13:14 Initial Sepsis Screen: Does the patient meet any 2 criteria? No. Patient's initial iw sepsis screen is negative. Does the patient have a suspected source of infection? No. Patient's initial sepsis screen is negative. 13:15 Chief complaint: Patient states: son had strep a week ago, now I have been running iw fever X 2 days, and sore throat. Coronavirus screen: Client presents with at least one sign or symptom that may indicate coronavirus-19. Ebola Screen: No symptoms or risks identified at this time. Risk Assessment: Do you want to hurt yourself or someone else? Patient reports no desire to harm self or others. Onset of symptoms was August 24, 2025. 13:15 Method Of Arrival: Ambulatory iw 13:15 Acuity: RAYMOND 4 iw Historical: - Allergies: 13:14 No Known Allergies; iw - Home Meds: 13:14 None [Active]; iw - PMHx: 13:14 None; iw - PSHx: 13:14 Tonsillectomy; Adenoid excision; Cholecystectomy; iw - Immunization history:: Adult Immunizations unknown. - Infectious Disease History:: Denies. - Social history:: Smoking status: unknown. Screenin:38 [facility] ED Fall Risk Assessment (Adult) History of falling in the last 3 months, af3 including since admission No falls in past 3 months (0 pts) Confusion or Disorientation No (0 pts) Intoxicated or Sedated No (0 pts) Impaired Gait No (0 pts) Mobility Assist Device Used No (0 pt) Altered Elimination No (0 pt) Score/Fall Risk Level 0 - 2 = Low Risk Oriented to surroundings, Maintained a safe environment. Abuse screen: Denies threats or abuse. Denies injuries from another. Nutritional screening: No deficits noted. Tuberculosis screening: No symptoms or risk factors identified. Assessment: 13:38 General: Appears in no apparent distress. comfortable, well groomed, well developed, af3 Behavior is calm, cooperative, appropriate for age. Pain: Denies pain. Neuro: Level of Consciousness is awake, alert, obeys commands, Oriented to person, place, time, situation, Appropriate for age. Cardiovascular: Patient's skin is warm and dry. Respiratory: Airway is patent Respiratory effort is even, unlabored, Respiratory pattern is regular, symmetrical. Vital Signs: 13:15 BP 113 / 73; Pulse 80; Resp 18; Temp 97.4; Pulse Ox 100% on R/A; Weight 83.91 kg; iw Height 5 ft. 5 in. ; Pain 8/10; 13:15 Body Mass Index 30.78 (83.91 kg, 165.1 cm) iw 13:15 Pain Scale: Adult iw ED Course: 13:12 Patient arrived in ED. al6 13:14 [facility] sb4 13:14 Ronni Do DO is Attending Physician. sb4 13:16 Triage completed. iw 13:16 Arm band placed on. iw 13:35 Chaparrita Lanza, RN is Primary Nurse. af3 13:38 Patient has correct armband on for positive identification. Bed in low position. Call af3 light in reach. Provided Education on: call light use . 13:38 No provider procedures requiring assistance completed. Patient did not have IV access af3 during this emergency room visit. Administered Medications: No medications were administered Medication: 13:38 VIS not applicable for this client. af3 Outcome: 13:26 Discharge ordered by MD. sb4 13:38 Discharged to home ambulatory, af3 13:38 Condition: stable 13:38 Discharge instructions given to patient, Instructed on discharge instructions, follow up and referral plans. medication usage, Demonstrated understanding of instructions, follow-up care, medications, Prescriptions given X 1, 13:40 Patient left the ED. af3 Signatures: Angélica Galvin RN RN iw Stephanie Ruiz PA-C PA-C sb4 Chaparrita Lanza RN RN af3 Marquita Hutchinson al6 Corrections: (The following items were deleted from the chart) 13:16 13:15 BP 113 / 73; Pulse 80bpm; Resp 18bpm; Pulse Ox 100% RA; Temp 97.4F; 83.91 kg; iw Height 5 ft. 5 in.; BMI: 30.7; iw
--- NOTE | 2025-08-26 13:26 | EDPHYS ---
Physician Documentation [facility] Name: Paula Pulido Age: 30 yrs Sex: Female : 1995 Arrival Date: 08/26/2025 Time: 13:08 Bed 11 Private MD: ED Physician Ronni Do HPI: 08/26 14:55 This 30 yrs old Female presents to ER via Ambulatory with complaints of Flu Symptoms. sb4 14:55 Patient presents today with complaints of sore throat and fever for 2 days now. She sb4 states that her son was sick with strep throat last week. She denies any cough, congestion, ear pain. Has been taking Tylenol and ibuprofen for her fever. Is able to swallow and handle her secretions. Historical: - Allergies: 13:14 No Known Allergies; iw - Home Meds: 13:14 None [Active]; iw - PMHx: 13:14 None; iw - PSHx: 13:14 Tonsillectomy; Adenoid excision; Cholecystectomy; iw - Immunization history:: Adult Immunizations unknown. - Infectious Disease History:: Denies. - Social history:: Smoking status: unknown. ROS: 14:55 Eyes: Negative for injury, pain, redness, and discharge, sb4 14:55 Constitutional: Positive for fever, 14:55 ENT: Positive for sore throat, 14:55 All other systems are negative, Exam: 14:55 Constitutional: This is a well developed, well nourished patient who is awake, alert, sb4 and in no acute distress. Head/Face: Normocephalic, atraumatic. Eyes: Extra-ocular motions intact. Periorbital areas with no swelling, redness, or edema. ENT: Mucous membranes moist. Respiratory: No increased work of breathing, no retractions or nasal flaring. Skin: Warm, dry with normal turgor. Normal color with no rashes, no lesions, and no evidence of cellulitis. 14:55 ENT: TM's: are normal, Posterior pharynx: Tonsils: Surgically absent, swelling, that is moderate, erythema, that is moderate, exudate, is not appreciated, Vital Signs: 13:15 BP 113 / 73; Pulse 80; Resp 18; Temp 97.4; Pulse Ox 100% on R/A; Weight 83.91 kg; iw Height 5 ft. 5 in. ; Pain 8/10; 13:15 Body Mass Index 30.78 (83.91 kg, 165.1 cm) iw 13:15 Pain Scale: Adult iw MDM: 13:17 Medical Screening Exam initiated sb4 14:55 Differential diagnosis: viral Infection, bacterial infection. Data reviewed: vital sb4 signs, nurses notes, and as a result, I will discharge patient. Test considered but Not performed: Labs: Strep swab not indicated, clinical diagnosis. Counseling: I had a detailed discussion with the patient and/or guardian regarding the historical points, exam findings, and any diagnostic results supporting the discharge/admit diagnosis, the need for outpatient follow up, for definitive care, to return to the emergency department if symptoms worsen or persist or if there are any questions or concerns that arise at home. Administered Medications: No medications were administered Disposition: 16:56 I was immediately available on-site in the Emergency Department for consultation in the ms3 care of the patient. Disposition Summary: 08/26/25 13:26 Discharge Ordered Notes: Location: Home sb4 Problem: new sb4 Symptoms: are unchanged sb4 Condition: Stable sb4 Diagnosis - Streptococcal pharyngitis sb4 Followup: sb4 - With: Emergency Department - When: As needed - Reason: Fever > 102 F, Trouble breathing, Worsening of condition Discharge Instructions: - Discharge Summary Sheet sb4 - Strep Throat, Adult, [id number] sb4 Forms: - Work release form sb4 - Antibiotic Education sb4 - Patient Portal Instructions sb4 - Leadership Thank You Letter sb4 Prescriptions: - Amoxicillin 875 mg Oral Tablet - take 1 tablet ORAL route every 12 hours for 10 days; 20 tablet; Refills: 0, sb4 Product Selection Permitted Signatures: Angélica Galvin, RN RN iw Ronni Do DO DO ms3 Stephanie Ruiz PA-C PA-C sb4 Chaparrita Lanza RN RN af3
[2025-08-26 13:59] VITALS: BP 113/73; TEMP 97.4; O2SAT 100
== END 2025-08-26 13:40 | disposition home or self-care (01) ==
LOC: ER 13:08
DX: J02.0 Streptococcal pharyngitis (principal)
CPT/HCPCS: 99283